=== PATIENT | female | born 1995 | race Caucasian/White ===

== ENCOUNTER 2019-06-14 08:00 | Outpatient (CLI) | payer OTHER ==
[2019-06-14 22:10] LABS: TRICHOMONAS VAGINALIS DNA NEGATIVE (NEGATIVE)
== END 2019-06-14 23:59 | disposition home or self-care (01) ==
LOC: LAB.R 08:00
PROVIDERS: ATTEND Obstetrics & Gynecology
DX: Z36.85 Encounter for antenatal screening for Streptococcus B (principal)
CPT/HCPCS: 87491; 87591; 87661; 87797

== ENCOUNTER 2019-06-30 07:34 | Outpatient (CLI) | payer OTHER ==
[2019-06-30 07:51] VITALS: BP 127/89
--- NOTE | 2019-06-30 10:11 | Labor Flowsheet ---
Labor Flowsheet Datetime Report Generated by CPN: 06/30/2019 10:10 Datetime: 06/30/2019 08:49 Pulse: 93 SpO2 (%): 100 UTERINE ACTIVITY Monitor Interventions for UA: [place] Adjusted PATIENT CARE Patient Position/Activity: High Fowlers Patient Care Comments: eating LaborFlag: Labor Datetime: 06/30/2019 08:20 COMMUNICATION Communication: Call/Page Placed to Provider Provider Notified (Name): Dr. Giem Communication Comments: reported cerivical status to Dr of no change from previous visit yesterday, pt can walk and recheck to see if change or choose to go home, per MD. if contractions "wain" disc harge pt. Datetime: 06/30/2019 08:11 VAGINAL EXAM Dilatation (cm): 1.0 Effacement (%): 70 Station: -2 Exam by: Nevaeh Vaginal Bleeding: None Cervix, Consistency: Soft Cervix, Position: Posterior Datetime: 06/30/2019 08:06 Notification Reason: Status Update Datetime: 06/30/2019 07:47 VITAL SIGNS NBP Sys/Rosalie/Mean (mmHg): 127 : 89 : 98 Datetime: 06/30/2019 07:46 Stage of : Labor
--- NOTE | 2019-07-08 11:36 | PROVIDER PROGRESS NOTE ---
- HPI Chief Complaint: Labor Check Current : Current EDU 07/17/19 Gestation 37 Weeks and 4 Days 1 Para 0 Vital Signs Temperature 37.2 C 06/30/19 07:49 Heart Rate 78 06/30/19 07:49 Respiratory Rate 16 06/30/19 07:49 Blood Pressure 127/89 H 06/30/19 07:49 O2 Saturation 100 06/30/19 07:49 Temperature 37.2 C 06/30/19 07:49 Heart Rate 78 06/30/19 07:49 Respiratory Rate 16 06/30/19 07:49 Blood Pressure 127/89 H 06/30/19 07:49 O2 Saturation 100 06/30/19 07:49 - Procedures OB Procedure Performed: NST (reactive) Findings: Cx 1/70%/-2/posterior soft - Plan Plan: keep clinic appt. reviewed labor, SROM, FM
== END 2019-06-30 10:15 | disposition home or self-care (01) ==
LOC: WFO 07:34 → FBP 07:40 → WFO 10:15
PROVIDERS: ATTEND Obstetrics & Gynecology
DX: Z34.03 Encounter for supervision of normal first pregnancy, third trimester (principal); Z3A.37 37 weeks gestation of pregnancy
CPT/HCPCS: 99213

== ENCOUNTER 2019-07-05 18:17 | Inpatient (IN) | payer OTHER ==
--- NOTE | 2019-07-05 22:46 | PROVIDER PROGRESS NOTE ---
- HPI Chief Complaint: Other (Patient is a 24-year-old G1, P0 at 38 and 2 weeks estimated gestational age here with prodromal labor. Patient was seen in clinic today and underwent stripping of her membranes. She was approximately 2 cm dilated at that time. She has been undergoing serial exams over the course of the course of the evening. She has progressed from 2.5 to about 3.5 with minimal change in effacement or station.She is not meeting criteria for inpatient admission for labor. Given gestational age prior to 39 weeks, we are unable to augment her. She has had a small amount of vaginal bleeding consistent with recent membrane stripping. Otherwise no loss of fluid. Contractions are about every 6 minutes. Endorses movement. Poor tolerance of contraction related pain.) Current : Current EDU 07/17/19 Gestation 38 Weeks and 2 Days 1 Para 0 Vital Signs Temperature 98.8 F 07/05/19 18:26 Heart Rate 92 07/05/19 18:26 Respiratory Rate 20 07/05/19 18:26 Blood Pressure 127/81 H 07/05/19 18:26 O2 Saturation 100 07/05/19 18:26 Temperature 98.8 F 07/05/19 18:26 Heart Rate 82 07/05/19 22:09 Respiratory Rate 15 07/05/19 22:09 Blood Pressure 123/76 07/05/19 22:09 O2 Saturation 100 07/05/19 22:09 - Exam GEN: mild distress CV: RR RESP: nl effort SVE 3/90/-1 station EFM 150 mod coral 15x15 accels no decels TOCO: Q 6min - Procedures OB Procedure Performed: NST NST Procedure: Cat I tracing Service Date of procedure: 07/05/19 Procedure Details: Patient has been observed over several hours with minimal cervical change Poor tolerance of labor Offered therapeutic rest wiht option for in-patient vs outpatient management Patient opting for in-patient stay on observational status while undergoing therapeutic rest Morphine 10 mg IM x1 Phenergan 25 mg IM x1 Will observe overnight with plan to DC in am if labor has not progressed
[2019-07-05] MEDS ORDERED: PROMETHAZINE 25 MG/1 ML VIAL IM STA (22:50)
[2019-07-06] MEDS ORDERED: SODIUM CHLORIDE FLUSH 0.9% 10 ML SYRINGE ONE (02:17)
[2019-07-06] MEDS ORDERED: LACTATED RINGERS 1,000 ML IV ONE (02:17)
[2019-07-06] MEDS ORDERED: OXYTOCIN/SODIUM CHLORIDE 500 ML IV PRN (02:18)
[2019-07-06] MEDS ORDERED: SODIUM CHLORIDE FLUSH 0.9% 10 ML SYRINGE IVP PRN ×2 (02:18→06:09)
[2019-07-06] MEDS ORDERED: ONDANSETRON 4 MG/2 ML VIAL IVP PRN ×2 (02:18→03:44)
[2019-07-06] MEDS ORDERED: ROPIVACAINE 0.2% 200 MG/100 ML BAG EP ONE (02:36)
[2019-07-06 02:46] LABS: BASOPHILS % (AUTO) 0.3 %; EOSINOPHILS % (AUTO) 0.3 %; HGB - HEMOGLOBIN 11.7 g/dL (12.0-16.0); LYMPHOCYTES # (AUTO) 1.7 10^3/uL (1.5-3.5); LYMPHOCYTES % (AUTO) 15.4 %; MEAN CORPUSCULAR HEMOGLOBIN 27.9 pg (27.0-31.0); MEAN CORPUSCULAR HGB CONC 33.1 g/dL (32.0-36.0); MONOCYTES # (AUTO) 0.8 10^3/uL (0.0-1.0); MONOCYTES % (AUTO) 7.4 %; NEUTROPHILS # (AUTO) 8.4 10^3/uL (1.5-6.6); NEUTROPHILS % (AUTO) 76.1 %; PLT - PLATELET COUNT 165 10^3/uL (130-450); RED CELL DISTRIBUTION WIDTH 13.1 % (12.0-15.0)
[2019-07-06] MEDS ORDERED: LACTATED RINGERS 1,000 ML IV SCH ×3 (03:00→11:00)
[2019-07-06] MEDS ORDERED: LIDOCAINE-MPF 1% 30 ML VIAL ONE (03:12)
[2019-07-06] MEDS ORDERED: ROPIVACAINE 0.2% 200 MG/100 ML BAG EP PRN (03:44)
[2019-07-06] MEDS ORDERED: ePHEDrine 50 MG/ML VIAL IVP PRN (03:44)
[2019-07-06] MEDS ORDERED: diphenhydrAMINE INJ 50 MG/ML VIAL IVP PRN (03:44)
[2019-07-06] MEDS ORDERED: LACTATED RINGERS 500 ML IV ONE (03:44)
[2019-07-06] MEDS ORDERED: NALOXONE 0.4 MG/ML VIAL IVP PRN (03:44)
[2019-07-06] MEDS ORDERED: NALBUPHINE 10 MG/ML AMP IVP PRN (03:44)
--- NOTE | 2019-07-06 03:49 | ANESTHESIA ---
Pre-Anesthesia VS, & Labs - Diagnosis active labor(IUP) - Procedure KEYSHAWN Vital Signs: Temp Pulse Resp BP Pulse Ox 37.1 C 82 15 123/76 100 07/05/19 18:26 07/05/19 22:09 07/05/19 22:09 07/05/19 22:09 07/05/19 22:09 Height 5 ft 3 in Weight (kg) 71.214 kg - NPO Other (have been taking liquids) - Is Patient ?: Yes - Lab Results Current Lab Results: Laboratory Tests 07/06/19 02:35: WBC 11.0 H, RBC 4.20, Hgb 11.7 L, Hct 35.3 L, MCV 84.0, MCH 27.9, MCHC 33.1, RDW 13.1, Plt Count 165, MPV 11.0 H, Neut # (Auto) 8.4 H, Lymph # (Auto) 1.7, Evangeline # (Auto) 0.8, Eos # (Auto) 0.0, Baso # (Auto) 0.0, Absolute Nucleated RBC 0.00, Nucleated RBC % 0.0 Fish Bones: 07/06/19 02:35 Home Medications and Allergies Active Medications Diphenhydramine HCl (Benadryl Inj) 12.5 - 25 mg IVP Q6HR PRN PRN Reason: ITCHING Ephedrine Sulfate () 5 mg IVP Q5M PRN PRN Reason: For SBP<100;give until SBP>100 Lactated Ringer's (Lr) 1,000 mls @ 150 mls/hr IV .Q6H40M YUSRA Last Admin: 07/06/19 02:50 Dose: 150 mls/hr Oxytocin/Sodium Chloride (Pitocin/Sodium Chloride) 500 mls @ 999 mls/hr IV PRN PRN; Protocol PRN Reason: POST- HEMORR PREVENTION Lactated Ringer's (Lr) 500 mls @ 999 mls/hr IV ONCE ONE Stop: 07/06/19 04:14 Ropivacaine (Naropin 0.2%) 200 mg in 100 mls @ 0 mls/hr EP PRN PRN; Protocol PRN Reason: PAIN Nalbuphine HCl (Nubain) 2.5 - 5 mg IVP Q4H PRN PRN Reason: ITCHING Naloxone HCl (Narcan) 0.1 mg IVP Q2M PRN PRN Reason: RR<8 Ondansetron HCl (Zofran Inj) 4 mg IVP Q4H PRN PRN Reason: Nausea / Vomiting Last Admin: 07/06/19 02:50 Dose: 4 mg Ondansetron HCl (Zofran Inj) 4 mg IVP Q6HR PRN PRN Reason: Nausea / Vomiting Sodium Chloride (Normal Saline Flush 0.9%) 10 ml IVP PRN PRN PRN Reason: NEEDED PER PROVIDER ORDERS Sodium Chloride (Normal Saline Flush 0.9%) 10 ml IVP 0100,0900,1700 YUSRA Allergies/Adverse Reactions: Allergies Allergy/AdvReac Type Severity Reaction Status Date / Time hydrocodone Allergy Anaphylaxis Verified 06/30/19 09:15 pistachio nut Allergy Anaphylaxis Verified 06/30/19 09:15 Anes History & Medical History - Anesthetic History Anesthesia Complications: reports: Other-see comment (no family history of anesthesia complications. denies any previous anesthesia history) Family history of Anesthesia Complications: Denies Family history of Malignant Hyperthermia: Denies - Medical History Cardiovascular: reports: None Pulmonary: reports: None Gastrointestinal: reports: None Urinary: reports: None Neuro: reports: None Musculoskeletal: reports: None Endocrine/Autoimmune: reports: None Blood Disorders: reports: None Skin: reports: None Smoking Status: Never smoker Psychosocial: reports: No issues indicated Exam General: Alert, Oriented x3, Cooperative, No acute distress Dental: WNL Mouth Openin Fingerbreadth Neck Mobility: Normal Mallampati classification: III Thyromental Distance: 4-6 cm Respiratory: Lungs clear, Normal breath sounds, No respiratory distress, No accessory muscle use Cardiovascular: Regular rate, Normal S1, Normal S2, No murmurs Abdomen: Normal bowel sounds, Soft, No tenderness, No hepatospenomegaly, No masses Extremities: No clubbing, No cyanosis, No edema, Normal pulses, No tender ness/swelling Neurological: Normal gait, Normal speech, Strength at 5/5 X4 ext, Normal tone, Sensation intact, Cranial nerves 3-12 NL, Reflexes 2+ Mental/Cognitive Status: Alert/Oriented X3, Normal for patient Cognitive Status: Within normal limits Plan Anesthesia Type: Epidural Consent for Procedure(s) Verified and Reviewed: Yes Code Status: Attempt Resuscitation ASA classification: 2-Mild systemic disease Is this case an emergency?: No
[2019-07-06] MEDS ORDERED: miSOPROStoL 200 MCG TABLET ONE (07:34)
[2019-07-06] MEDS ORDERED: SODIUM CHLORIDE FLUSH 0.9% 10 ML SYRINGE IVP SCH ×2 (09:00)
[2019-07-06] MEDS ORDERED: diphenhydrAMINE 25 MG CAPSULE PO PRN (09:29)
[2019-07-06] MEDS: ACETAMINOPHEN 500 MG TABLET PO SCH (16:39)
[2019-07-06] MEDS: IBUPROFEN 800 MG TABLET PO SCH ×2 (16:39→23:05)
[2019-07-06] MEDS: DOCUSATE SODIUM 100 MG CAPSULE PO SCH (20:28)
[2019-07-07] MEDS: ACETAMINOPHEN 500 MG TABLET PO SCH ×2 (04:20→07:27)
[2019-07-07] MEDS: IBUPROFEN 800 MG TABLET PO SCH ×2 (07:28→07:39)
[2019-07-07] MEDS: DOCUSATE SODIUM 100 MG CAPSULE PO SCH (07:39)
[2019-07-07 07:56] VITALS: BP 110/73
--- NOTE | 2019-07-07 12:27 | Discharge Plan ---
Discharge Plan Problem Reviewed?: Yes Disposition: Home, Self Care Condition: Good Diet: Regular Activity Restrictions: Activity as Tolerated Shower Restrictions: No Driving Restrictions: No Health Concerns: Routine care Additional Instructions or Follow Up instructions: Nothing in the vagina for 6 weeks: No intercourse, tampons, douching Call for: -Fever greater than 100.5 -Pain that does not improve with pain medication -Heavy bleeding in which you are soaking a pad an hour for 2 hours in a row Ibuprofen 600 mg by mouth every 6 hours as needed for pain Acetaminophen 500-1000 mg by mouth every 8 hours as needed for pain Docusate 100-200 mg by mouth twice a day as needed for constipation No Smoking: If you smoke, Please STOP! Call for help. Follow-up with: MICHELLE ERNANDEZ MD, PHD [Physician No Access] -
--- NOTE | 2019-07-07 12:30 | HISTORY & PHYSICAL EXAMINATION ---
Admit History - Visit Reason Visit Reason: Other (Patient is a 24-year-old G1, P0 at 38 and 2 weeks estimated gestational age here with prodromal labor. Patient was seen in clinic today and underwent stripping of her membranes. She was approximately 2 cm dilated at that time. She has been undergoing serial exams over the course of the course of the evening. She has progressed from 2.5 to about 3.5 with minimal change in effacement or station.She is not meeting criteria for inpatient admission for labor. Given gestational age prior to 39 weeks, we are unable to augment her. She has had a small amount of vaginal bleeding consistent with recent membrane stripping. Otherwise no loss of fluid. Contractions are about every 6 minutes. Endorses movement. Poor tolerance of contraction related pain. ETA: Patient woke from theraputic rest in active labor with 5cm cervical dilation at 2:15 am. Admitted for in-patient care.) - : 1 Parity: 0 Care: positive: [facility] Smoking Status: Never smoker Meds/Allgy - Allergies Allergies/Adverse Reactions: Allergies Allergy/AdvReac Type Severity Reaction Status Date / Time hydrocodone Allergy Anaphylaxis Verified 06/30/19 09:15 pistachio nut Allergy Anaphylaxis Verified 06/30/19 09:15 Physical - Abdominal Exam Vital Signs: Temp Pulse Resp BP Pulse Ox 98.1 F 78 18 110/73 100 07/07/19 07:56 07/07/19 07:56 07/07/19 07:56 07/07/19 07:56 07/07/19 07:56 Contraction Frequency (min/apart): Q2-3 min Contraction Intensity: positive: Moderate to strong - Monitoring Strip Review: positive: Category I - Presentation Presentation: positive: Vertex - Vaginal Exam Membranes: positive: Membranes intact Dilation (in cm): 5 Effacement (%): 90 Station: positive: -1 - Other Notes Labor Progress Note/Additional Text: Advanced into spontaneous labor at 2:15 am Plan for Labor - Plan For Labor Plan for Labor: LABOR: -Expectant management -Augmentation with pitocin as indicated PAIN: Received epidural shortly after cessation of therapeutic rest In-patient care
--- NOTE | 2019-07-07 12:36 | PROVIDER PROGRESS NOTE ---
Subjective - Prog Note Date Prog Note Date: 07/07/19 Prog Note Time: 12:32 - Subjective Subjective: Patient is up and ambulating, tolerating po, and voiding. Pain is well managed with pain medications. Desires DC to home Objective - Vital Signs/Intake & Output Vital Signs: Vital Signs x48h Temp Pulse Resp BP Pulse Ox 07/07/19 07:56 98.1 F 78 18 110/73 100 Intake & Output: Intake & Output 07/04/19 07/05/19 07/06/19 07/07/19 23:59 23:59 23:59 23:59 Intake Total 2000 Output Total 800 Balance 1200 - Lab Results Fish Bones: 07/06/19 02:35 Assessment/Plan - Problem List (1) Vaginal delivery Impression: PPD#1: Meeting goals for discharge Routine DC instructions given DC to home O pos/rub imm
--- NOTE | 2019-07-07 13:39 | Labor Flowsheet ---
Labor Flowsheet Datetime Report Generated by CPN: 07/07/2019 13:38 Datetime: 07/07/2019 07:48 VITAL SIGNS NBP Sys/Rosalie/Mean (mmHg): 110 : 73 : 82 Pulse: 67 Datetime: 07/06/2019 20:30 SpO2 (%): 100 Datetime: 07/06/2019 10:46 Stage of : Recovery Datetime: 07/06/2019 07:40 LaborFlag: OB Triage Datetime: 07/06/2019 07:37 Temperature (C): 37.2 Datetime: 07/06/2019 07:18 UTERINE ACTIVITY Monitor Mode: External Frequency (min): 2-3 Quality: Strong Duration (sec): 70-90 Pattern: Normal: <= 5 Contractions in 10 Minutes Resting Tone (Palpate): Relaxed ASSESSMENT A Monitor Mode: Telemetry FHR Baseline Rate : 180 FHR Baseline Changes: Tachycardia Variability: Moderate 6-25 bpm Accelerations: None Decelerations: None Category: Category II Vibroacoustic Stim: STAGE 2 Pushing: Coached on Pushing; Urge to Push Pushing Position: Pushing with Contractions; Pushing Lithotomy Pushing Progress: Descent with Pushing; Pushing Effectively with Contractions Datetime: 07/06/2019 06:56 VAGINAL EXAM Dilatation (cm): 10.0 Effacement (%): 100 Station: 1 Exam by: Mcsorely Datetime: 07/06/2019 06:54 Membranes Ruptured Date/Time: 07/06/2019 06:15 Amniotic Fluid Odor: Normal Datetime: 07/06/2019 06:51 COMMUNICATION Communication: Call/Page Placed to Provider Communication Comments: Called Peds to update and request that he come in and he said that he was i n the parking lot and would be in at bedside momentarily Datetime: 07/06/2019 06:46 Stage 2 Comments: assess pushing efforts Datetime: 07/06/2019 06:43 Provider Notified (Name): Mcsorely Datetime: 07/06/2019 06:28 Monitor Interventions for FHR: Ultrasound Adjusted Datetime: 07/06/2019 06:26 Patient Care Comments: pt sitting in throne, knees in butterfly Datetime: 07/06/2019 06:17 Patient Position/Activity: Right Lateral Datetime: 07/06/2019 06:15 Membrane Status: Ruptured Membranes Rupture Method: Artificial Amniotic Fluid Color: Heavy Meconium Amniotic Fluid Amount: Moderate Datetime: 07/06/2019 05:36 Anesthesia Comments: pump settings changed intermittent bolus from 10ml to 8ml and bolus time from [id number] to [id number]. Verified with 2nd RN Alex Aguero RN Datetime: 07/06/2019 05:30 Actions for Decelerations: Side to Side Datetime: 07/06/2019 05:25 Notification Reason: Status Update; Status; Labor Status Datetime: 07/06/2019 05:00 Respirations: 15 Pain Presence: None/Denies Pain Type: N/A MATERNAL ASSESSMENT Level of Consciousness: Alert DTR's/Clonus: DTRs 2+; No Clonus Headache: Denies Breath Sounds, Left: Clear and Equal Breath Sounds, Right: Clear and Equal Nausea/Vomiting: Denies RUQ Epigastric Pain: Denies Anesthesia Level Check: T9 Datetime: 07/06/2019 04:59 Monitor Interventions for UA: [place] Adjusted I/O Interventions: [place] Cath Inserted Datetime: 07/06/2019 04:44 PATIENT CARE IV/Blood Work: New IV Bag Hung Datetime: 07/06/2019 04:41 Medication Comments: ephedrine 5mg Datetime: 07/06/2019 03:30 Epidural Procedure Other: Pump Started Datetime: 07/06/2019 03:25 Epidural Procedure: Loading Dose Datetime: 07/06/2019 03:20 Comments: RN @ bedside for epidural placement Datetime: 07/06/2019 03:13 PROCEDURE TIME OUT Procedure Verify: Correct Patient Identity; Correct Side and Site are Marked; Accurate Procedure Co nsent Form; Agreement on Procedure to be Done; Correct Patient Position ANESTHESIA Epidural Positioning: Sitting Datetime: 07/06/2019 02:49 MEDICATIONS Antiemetics/Antacids: Zofran (mg) @ 4 Datetime: 07/06/2019 02:31 TEACHING Instructional Method: Verbal Plan of Care: Plan of Care Discussed; Vaginal Delivery Unit Routine: [place] to Room; Call [place]; Bed Labor/Induction: Labor Stages Pain Management: Epidural; Pain Scale/Goals; Comfort Measures Datetime: 07/06/2019 02:27 PAIN Pain Scale: 10 Pain Location: Abdomen Pain Relief Measures: Pain Medication Given Pain Coping: Breathing Through Contractions Pain Assessment Comments: requesting epidural Comfort Measures: Breathing/Relaxation
--- NOTE | 2019-07-07 17:18 | DELIVERY NOTE ---
Delivery Note - Infant Delivery Method Infant Delivery Method: positive: Spontaneous vaginal delivery - Presentation Presentation: positive: Vertex - Amniotic Fluid Description Amniotic Fluid Description: positive: Thick meconium - Episiotomy Type Episiotomy Type: positive: None - Laceration Laceration: positive: None - Delivery Outcome Delivery Outcome: positive: Livebirth - [place] : positive: Placed in direct skin contact with mother, Suctioned, Bulb syringe, Warmed, [place] used sex: positive: Female - Cord Cord: positive: 3 vessels - Placenta Placenta: positive: Intact, Expressed - Estimated Blood Loss Estimated Blood Loss (in cc): 200 - Post Delivery Events Post Delivery Events: positive: No post delivery events - Delivery Comments (Free Text/Narrative) Delivery Comments (Free Text/Narrative): STAGE I: Patient is a 24-year-old G1, P0 who presented to labor and delivery on 07/05/2019 and prodromal labor. She was observed over an extended period of time and had minimal cervical change. She was offered therapeutic rest outpatient or inpatient. She opted for inpatient observation while undergoing therapeutic rest with Phenergan only; allergic to narcotics. At 2:15 AM on 07/06/2019, she awoke with painful contractions. She was examined and found to be 590 and -1 station. She received an epidural for pain management shortly thereafter. She was GBS negative and antibiotics were not indicated. She remained afebrile during her labor course but heart tracing did show tachycardia in the setting of moderate variability. She was examined and found to be complete at approximately 6:56 AM. She underwent AROM notable for passage of thick meconium. tracing was category 1 to category 2 throughout stage I labor. STAGE II: Patient pushed well for 22 minutes to deliver a viable female infant from vertex presentation at 7:18 am. Delivered from NATA presentation; right shoulder was anterior and delivered easily. She was delivered to maternal chest and was noted to be vigorous. Pediatric team was standing by but immeidate intervention was not indicated. Cord was cut clamped x2 and cut after pulsations had ceased. Weight and Apgars are pending. STAGE III: Placenta delivered at 7:43 am with manual expression and gentle downward traction on the umbilical cord. It was examined and found to be intact. It was noted to have diffuse calcifications. Perineum was examined and was intact. Total EBL 200 cc. Procedure was well tolerated and without complications.
--- NOTE | 2019-07-07 17:27 | DISCHARGE SUMMARY ---
"Discharge Summary Admit Date: 07/06/19 Discharge Date: 07/07/19 Discharging Provider: Jeanna Condition at Discharge: Good Discharge Disposition: 01 Home, Self Care Discharge [facility] Name: [facility] - DIAGNOSES Admission Diagnoses: Labor at 38w2d Discharge Diagnoses with Status of Each Condition: Same and delivery of term gestation - HPI History of Present Illness: Patient is a 24-year-old G1, P0 at 38 and 2 weeks estimated gestational age here with prodromal labor. Patient was seen in clinic today and underwent stripping of her membranes. She was approximately 2 cm dilated at that time. She has been undergoing serial exams over the course of the course of the evening. She has progressed from 2.5 to about 3.5 with minimal change in effacement or station.She is not meeting criteria for inpatient admission for labor. Given gestational age prior to 39 weeks, we are unable to augment her. She has had a small amount of vaginal bleeding consistent with recent membrane stripping. Otherwise no loss of fluid. Contractions are about every 6 minutes. Endorses movement. Poor tolerance of contraction related pain. She was admitted on observational status on 07/05/2019 for therapeutic rest. She woke from theraputic rest in active labor with 5cm cervical dilation at 2:15 am. Admitted for in-patient care. - CONSULTS | PROCEDURES Procedures: Normal spontaneous vaginal delivery - HOSPITAL COURSE Hospital Course: At 2:15 AM on 07/06/2019, she awoke with painful contractions. She was examined and found to be 590 and -1 station. She received an epidural for pain management shortly thereafter. She was GBS negative and antibiotics were not indicated. She remained afebrile during her labor course but heart tracing did show tachycardia in the setting of moderate variability. She was examined and found to be complete at approximately 6:56 AM. She underwent AROM notable for passage of thick meconium. tracing was category 1 to category 2 throughout stage I labor. STAGE II: Patient pushed well for 22 minutes to deliver a viable female infant from vertex presentation at 7:18 am. Delivered from NATA presentation; right shoulder was anterior and delivered easily. She was delivered to maternal chest and was noted to be vigorous. Pediatric team was standing by but immediate intervention was not indicated. Cord was cut clamped x2 and cut after pulsations had ceased. Weight and Apgars are pending. STAGE III: Placenta delivered at 7:43 am with manual expression and gentle downward traction on the umbilical cord. It was examined and found to be intact. It was noted to have diffuse calcifications. Perineum was examined and was intact. Total EBL 200 cc. Procedure was well tolerated and without complications. By PPD#1, patient was meeting goals for discharge and was discharged to home. Rh i and Rubella immune - ALLERGIES Allergies/Adverse Reactions: Allergies Allergy/AdvReac Type Severity Reaction Status Date / Time hydrocodone Allergy Anaphylaxis Verified 06/30/19 09:15 pistachio nut Allergy Anaphylaxis Verified 06/30/19 09:15 - LABS Result Diagrams: 07/06/19 02:35 - FOLLOW UP Follow Up: Jeanna in 6 weeks - TIME SPENT Time Spent in Discharge (Minutes): 30"
== END 2019-07-07 13:36 | disposition home or self-care (01) | DRG 807 ==
LOC: WFO 18:17 → FBP 18:21 → WFO 23:06 → FBP 23:07 → OBSVTOIN 07-06 02:18
PROVIDERS: ADMIT Obstetrics & Gynecology; ATTEND Obstetrics & Gynecology
PROC: 10E0XZZ Delivery of Products of Conception, External Approach (ICD-10-PCS; principal; 2019-07-07)
PROC: 10907ZC Drainage of Amniotic Fluid, Therapeutic from Products of Conception, Via Natural or Artificial Opening (ICD-10-PCS; 2019-07-07)
DX: O77.0 Labor and delivery complicated by meconium in amniotic fluid (principal); Z37.0 Single live birth; O76 Abnormality in fetal heart rate and rhythm complicating labor and delivery; O43.893 Other placental disorders, third trimester; Z3A.38 38 weeks gestation of pregnancy
CPT/HCPCS: 81599; 85025; 99213; A9270; G0378; J7120; 87070; 87205

== ENCOUNTER 2021-12-28 12:12 | Emergency (ER) | payer OTHER ==
[2021-12-28 12:33] VITALS: BP 125/67
--- NOTE | 2021-12-28 13:53 | ED Physician Documentation ---
PD HPI URI - Stated complaint Stated Complaint: THROAT PX/COUGH - Chief complaint Chief Complaint: Heent - History obtained from History obtained from: Patient - History of Present Illness Timing - onset: Today, Last night Timing duration: Days (/) Timing details: Abrupt onset, Still present Associated symptoms: Chills, Nasal congestion, Sore throat. No: Fever, Dry cough, Dyspnea, NVD Contributing factors: Sick contact. No: Immunocompromised Similar symptoms before: Diagnosis (has hasd strep throat a few times in the past couple years.) Recently seen: Not recently seen Review of Systems Constitutional: reports: Chills, Myalgias Nose: reports: Congestion Throat: reports: Sore throat Respiratory: denies: Cough GI: denies: Vomiting, Diarrhea PD PAST MEDICAL HISTORY - Past Medical History Cardiovascular: None Respiratory: None Neuro: None Endocrine/Autoimmune: None GI: None : None Musculoskeletal: None Derm: None - Present Medications Home Medications: Ambulatory Orders Medication Instructions Recorded Confirmed No Known Home Medications 12/28/21 12/28/21 - Allergies Allergies/Adverse Reactions: Allergies Allergy/AdvReac Type Severity Reaction Status Date / Time hydrocodone Allergy Anaphylaxis Verified 12/28/21 12:33 pistachio nut Allergy Anaphylaxis Verified 12/28/21 12:33 - Social History Smoking Status: Never smoker PD ED PE NORMAL - Vitals Vital signs reviewed: Yes - General General: Alert and oriented X 3, No acute distress, Well developed/nourished - HEENT HEENT: Ears normal, Moist mucous membranes, Pharynx benign, Other (some nasal congesiton) - Neck Neck: Supple, no meningeal sign, No adenopathy - Cardiac Cardiac: RRR, No murmur - Respiratory Respiratory: Clear bilaterally - Abdomen Abdomen: Soft, Non tender - Derm Derm: Normal color, Warm and dry, No rash - Neuro Neuro: Alert and oriented X 3, Normal speech Results - Vitals Vitals: Oxygen O2 Source Room air PD MEDICAL DECISION MAKING - ED course Complexity details: considered differential (her child has URI symptoms for 2 days. Pateint now feeling malaise and sore throat. Has had strep in the past. Concerned about that. Exam is not suspicious though, with 0/4 Cent[place]. Patient chooses to defer strep test. ), d/w patient Departure - Departure Disposition: 01 Home, Self Care Clinical Impression: Upper respiratory infection Qualifiers: URI type: unspecified URI Qualified Code(s): J06.9 - Acute upper respiratory infection, unspecified Condition: Stable Record reviewed to determine appropriate education?: Yes Instructions: ED Upper Resp Infec No Abx Tx Comments: Clinically this does not look like a strep throat. Presume a viral upper respiratory infection. Stay well-hydrated. Tylenol ibuprofen for fevers or pains. You can use Benadryl or such for congestion or cough. Cough medicines are okay 2. Recheck or follow-up with your primary if more consistent or worsening soreness in the throat, fever, spotty tonsils or swollen neck glands. Discharge Date/Time: 12/28/21 14:50
== END 2021-12-28 14:50 | disposition home or self-care (01) ==
LOC: ED 12:12
DX: J06.9 Acute upper respiratory infection, unspecified (principal)
CPT/HCPCS: 99281; 99282